=== PATIENT | male | born 2000 | race Caucasian/White ===

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

== ENCOUNTER 2020-01-19 20:07 | Emergency (ER) | payer MEDICAID, OTHER ==
[~2020-01-19] VITALS: Ht 180.3 cm; Wt 70.8 kg
[2020-01-19 21:46] VITALS: BP 102/53
== END 2020-01-19 21:30 | disposition home or self-care (01) ==
LOC: ER 20:08
DX: K62.5 Hemorrhage of anus and rectum (principal); Z79.899 Other long term (current) drug therapy
CPT/HCPCS: 99281

== ENCOUNTER 2020-06-29 13:08 | Emergency (ER) | payer MEDICAID ==
[~2020-06-29] VITALS: Ht 180.3 cm; Wt 77.3 kg
[2020-06-29 13:15] VITALS: BP 126/66
--- NOTE | 2020-06-29 14:54 | NUR ---
process safety engineering technologist in room to apply knee immobilizer to right knee.
== END 2020-06-29 15:05 | disposition home or self-care (01) ==
LOC: ER 13:08
DX: M25.561 Pain in right knee (principal); Z79.899 Other long term (current) drug therapy; X50.1XXA Overexertion from prolonged static or awkward postures, initial encounter; Y93.89 Activity, other specified; Y92.89 Other specified places as the place of occurrence of the external cause; Y99.8 Other external cause status
CPT/HCPCS: 29505; 73564; 99283

== ENCOUNTER 2020-12-26 11:39 | Emergency (ER) | payer MEDICAID ==
[~2020-12-26] VITALS: Ht 180.3 cm; Wt 79.5 kg
[2020-12-26 11:56] VITALS: BP 125/77
[2020-12-26 13:27] LABS: BASOPHILS % (AUTO) 0.4 % (0-1); EOSINOPHILS # (AUTO) 0.1 X10'3 (0-0.9); EOSINOPHILS % (AUTO) 1.9 % (0-6); HEMATOCRIT 45.7 % (42.0-52.0); HEMOGLOBIN 15.5 g/dl (14.0-17.9); LYMPHOCYTES # (AUTO) 1.8 X10'3 (1.1-4.8); LYMPHOCYTES % (AUTO) 26.7 % (21-51); MEAN CORPUSCULAR HEMOGLOBIN 30.1 PG (27.0-31.0); MEAN CORPUSCULAR HGB CONC 33.8 g/dL (33.0-36.5); MEAN CORPUSCULAR VOLUME 89.1 FL (78-98); MEAN PLATELET VOLUME 6.8 FL (7.4-10.4); MONOCYTES # (AUTO) 0.6 X10'3 (0-0.9); MONOCYTES % (AUTO) 8.6 % (2-12); NEUTROPHILS # (AUTO) 4.2 X10'3 (1.8-7.7); NEUTROPHILS % (AUTO) 62.4 % (42-75); PLATELET COUNT 213 X10'3 (140-440); RED BLOOD COUNT 5.13 X10'6 (4.70-6.10); RED CELL DISTRIBUTION WIDTH 13.7 % (11.5-14.5); WHITE BLOOD COUNT 6.7 X10'3 (4.5-11.0)
[2020-12-26 13:42] LABS: ALANINE AMINOTRANSFERASE 18 U/L (12-78); ALBUMIN 4.2 G/DL (3.4-5.0); ALBUMIN/GLOBULIN RATIO 1.5 (1.1-1.5); ALKALINE PHOSPHATASE 54 IU/L (20-180); ANION GAP 2 (8-16); ASPARTATE AMINO TRANSFERASE 10 U/L (10-37); BILIRUBIN,TOTAL 0.3 MG/DL (0.1-1.0); BLOOD UREA NITROGEN 12 MG/DL (7-18); CALCIUM 8.9 MG/DL (8.5-10.1); CHLORIDE 110 MMOL/L (99-107); CREATININE 0.92 MG/DL (0.60-1.10); GLUCOSE 79 MG/DL (70-104); LIPASE 85 U/L (73-393); POTASSIUM 4.2 MMOL/L (3.5-5.1); SODIUM 144 MMOL/L (135-145); TOTAL CARBON DIOXIDE 32.4 MMOL/L (24-32); eGFR > 90 ML/MIN
== END 2020-12-26 15:11 | disposition home or self-care (01) ==
LOC: ER 11:40
DX: S60.221A Contusion of right hand, initial encounter (principal); G89.29 Other chronic pain; K62.89 Other specified diseases of anus and rectum; X58.XXXA Exposure to other specified factors, initial encounter; Y93.89 Activity, other specified; Y92.89 Other specified places as the place of occurrence of the external cause; Y99.8 Other external cause status
CPT/HCPCS: 36415; 73130; 80053; 83690; 85025; 99284

== ENCOUNTER 2021-10-16 11:16 | Emergency (ER) | payer MEDICAID ==
[~2021-10-16] VITALS: Ht 180.3 cm; Wt 75.0 kg
[2021-10-16 11:24] VITALS: BP 101/66
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
== END 2021-10-16 13:14 | disposition home or self-care (01) ==
LOC: EEVIPCON 11:17 → ER 11:17
DX: S83.91XA Sprain of unspecified site of right knee, initial encounter (principal); M67.431 Ganglion, right wrist; R22.41 Localized swelling, mass and lump, right lower limb; Z79.899 Other long term (current) drug therapy; Y04.0XXA Assault by unarmed brawl or fight, initial encounter; Y93.02 Activity, running; Y92.89 Other specified places as the place of occurrence of the external cause; Y99.8 Other external cause status
CPT/HCPCS: 29505; 73110; 73130; 73564; 99284; A6449

== ENCOUNTER 2022-03-04 02:06 | Emergency (ER) | payer MEDICAID ==
[~2022-03-04] VITALS: Ht 180.3 cm; Wt 75.0 kg
[2022-03-04 02:53] VITALS: BP 126/99
[2022-03-04 03:21] LABS: BASOPHILS # (AUTO) 0.1 X10'3 (0-0.2); BASOPHILS % (AUTO) 0.5 % (0-1); EOSINOPHILS % (AUTO) 0.2 % (0-6); HEMATOCRIT 50.5 % (42.0-52.0); LYMPHOCYTES # (AUTO) 1.1 X10'3 (1.1-4.8); LYMPHOCYTES % (AUTO) 9.2 % (21-51); MEAN CORPUSCULAR HEMOGLOBIN 30.2 PG (27.0-31.0); MEAN CORPUSCULAR HGB CONC 33.7 g/dL (33.0-36.5); MEAN CORPUSCULAR VOLUME 89.8 FL (78-98); MEAN PLATELET VOLUME 6.8 FL (7.4-10.4); MONOCYTES # (AUTO) 0.6 X10'3 (0-0.9); NEUTROPHILS # (AUTO) 10.4 X10'3 (1.8-7.7); NEUTROPHILS % (AUTO) 85.1 % (42-75); PLATELET COUNT 242 X10'3 (140-440); RED BLOOD COUNT 5.62 X10'6 (4.70-6.10); RED CELL DISTRIBUTION WIDTH 13.5 % (11.5-14.5); WHITE BLOOD COUNT 12.2 X10'3 (4.5-11.0)
[2022-03-04 03:22] LABS: ALANINE AMINOTRANSFERASE 20 U/L (12-78); ALBUMIN 4.8 G/DL (3.4-5.0); ALBUMIN/GLOBULIN RATIO 1.5 (1.1-1.5); ALKALINE PHOSPHATASE 48 IU/L (46-116); ANION GAP 10 (8-16); ASPARTATE AMINO TRANSFERASE 26 U/L (10-37); BILIRUBIN,TOTAL 0.5 MG/DL (0.1-1.0); BLOOD UREA NITROGEN 11 MG/DL (7-18); BUN/CREATININE RATIO 11.5 (5.4-32.0); CHLORIDE 102 MMOL/L (99-107); CREATININE 0.96 MG/DL (0.60-1.10); ETHANOL 0.137 GM/DL (0.0-0.010); GLUCOSE 104 MG/DL (70-104); POTASSIUM 3.3 MMOL/L (3.5-5.1); SODIUM 140 MMOL/L (135-145); TOTAL CARBON DIOXIDE 28.2 MMOL/L (24-32); TOTAL PROTEIN 7.9 G/DL (6.4-8.2); eGFR > 90 ML/MIN
--- NOTE | 2022-03-04 03:49 | NUR ---
PT UNABLE TO REST. PER PT HE HAS NOT SLEPT IN 24 HRS. PT IS CONSTANTLY WANTING TO MAKE PHONE CALLS AND QUESTIONING WHEN HE WILL BE ABLE TO LEAVE.
[2022-03-04] MEDS ORDERED: OLANZapine 5mg rapidly disint. tablet PO ONE (03:50)
[2022-03-04 04:03] LABS: URINE AMPHETAMINE SCREEN NEGATIVE (Neg); URINE BARBITUATE SCREEN NEGATIVE (Neg); URINE BENZODIAZEPINES SCREEN NEGATIVE (Neg); URINE CANNABINOID SCREEN POSITIVE (Neg); URINE COCAINE SCREEN POSITIVE (Neg); URINE METHADONE SCREEN NEGATIVE (Neg); URINE OPIATE SCREEN NEGATIVE (Neg); URINE PHENCYCLIDINE SCREEN NEGATIVE (Neg)
[2022-03-04 04:12] LABS: CLARITY,URINE CLEAR (Clear); COLOR,URINE STRAW (Yellow); GLUCOSE, URINE NEGATIVE (Neg); KETONES,URINE NEGATIVE (Neg); LEUKOCYTE ESTERASE ,URINE NEGATIVE (Neg); NITRITES, URINE NEGATIVE (Neg); OCCULT BLOOD,URINE SMALL (Neg); PH,URINE 6.5 (4.8-8.0); PROTEIN,URINE NEGATIVE (Neg); UROBILINOGEN,URINE 0.2 E.U/dL (0.2-1.0)
[2022-03-04 04:19] LABS: UA COLLECTION TYPE CLN CATCH MIDSTREAM
[2022-03-04 04:22] LABS: BACTERIA,URINE NONE SEEN /HPF (Neg); CAL OXALATE CRYSTALS FEW /HPF (NEGATIVE); MUCUS STRANDS NONE SEEN /LPF (Neg); RBC,URINE 0-2 /HPF (0-2); SQUAMOUS EPITHELIAL CELL,UR NONE SEEN /LPF (FEW); WBC,URINE NONE SEEN /HPF (0-4)
--- NOTE | 2022-03-04 04:24 | NUR ---
PT CONTINUES TO BE RESTLESS AFTER MEDICATION GIVEN. SEVERAL FAMILY MEMBERS HAVE CALLED TO SPEAK WITH PT. FAMILY NOTIFIED THAT THEY MAY CALL BACK IN THE MORNING AFTER THE PT GETS SOME REST.
[2022-03-04] MEDS ORDERED: cloNIDine 0.1 mg tablet PO STA ×2 (04:42→04:45)
[2022-03-04] MEDS ORDERED: LORazepam 1 MG tablet PO ONE (04:45)
--- NOTE | 2022-03-04 05:01 | NUR ---
PATIENT'S PACKET WAS SENT TO [facility].
--- NOTE | 2022-03-04 05:20 | NUR ---
Dr Crowell states it is ok to hold the meds but keep them on Mar in case it is needed.
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
--- NOTE | 2022-03-04 06:57 | NUR ---
pt brought over and placed in room 22
--- NOTE | 2022-03-04 07:56 | NUR ---
tech resent pt packet to [facility]
--- NOTE | 2022-03-04 13:17 | NUR ---
TECH GAVE PT BELONGINGS BACK TO HIM, NO VALUABLES WERE LOCKED UP.
== END 2022-03-04 13:31 | disposition home or self-care (01) ==
LOC: ER 02:06
DX: R45.851 Suicidal ideations (principal); Z20.822 Contact with and (suspected) exposure to COVID-19; F32.A Depression, unspecified
CPT/HCPCS: 36415; 80053; 80305; 80320; 81001; 85025; 87811; 99285

== ENCOUNTER 2023-04-10 11:39 | Emergency (ER) | payer MEDICAID ==
[~2023-04-10] VITALS: Ht 180.3 cm; Wt 75.0 kg
[2023-04-10 11:52] VITALS: BP 114/69
[2023-04-10 11:59] LABS: BASOPHILS % (AUTO) 0.3 % (0-1); EOSINOPHILS # (AUTO) 0.1 X10'3 (0-0.9); EOSINOPHILS % (AUTO) 1.2 % (0-6); HEMATOCRIT 50.1 % (42.0-52.0); HEMOGLOBIN 17.3 g/dl (14.0-17.9); LYMPHOCYTES # (AUTO) 3.4 X10'3 (1.1-4.8); LYMPHOCYTES % (AUTO) 39.8 % (21-51); MEAN CORPUSCULAR HEMOGLOBIN 29.6 PG (27.0-31.0); MEAN CORPUSCULAR HGB CONC 34.6 g/dL (33.0-36.5); MEAN CORPUSCULAR VOLUME 85.7 FL (78-98); MEAN PLATELET VOLUME 6.6 FL (7.4-10.4); MONOCYTES # (AUTO) 0.7 X10'3 (0-0.9); NEUTROPHILS # (AUTO) 4.3 X10'3 (1.8-7.7); NEUTROPHILS % (AUTO) 50.7 % (42-75); PLATELET COUNT 210 X10'3 (140-440); RED BLOOD COUNT 5.84 X10'6 (4.70-6.10); RED CELL DISTRIBUTION WIDTH 13.5 % (11.5-14.5); WHITE BLOOD COUNT 8.4 X10'3 (4.5-11.0)
[2023-04-10 12:20] LABS: ALANINE AMINOTRANSFERASE 19 U/L (12-78); ALBUMIN 4.9 G/DL (3.4-5.0); ALBUMIN/GLOBULIN RATIO 1.5 (1.1-1.5); ALKALINE PHOSPHATASE 46 IU/L (46-116); ANION GAP 7 (8-16); ASPARTATE AMINO TRANSFERASE 10 U/L (10-37); BILIRUBIN,TOTAL 1.3 MG/DL (0.1-1.0); BLOOD UREA NITROGEN 16 MG/DL (7-18); BUN/CREATININE RATIO 17.4 (10.0-20.0); CALCIUM 9.4 MG/DL (8.5-10.1); CHLORIDE 102 MMOL/L (99-107); CREATININE 0.92 MG/DL (0.60-1.10); GLUCOSE 90 MG/DL (70-104); POTASSIUM 4.3 MMOL/L (3.5-5.1); SODIUM 139 MMOL/L (135-145); TOTAL CARBON DIOXIDE 29.7 MMOL/L (24-32); TOTAL PROTEIN 8.1 G/DL (6.4-8.2); eCRCL 134 ML/MIN; eGFR > 90 ML/MIN
[2023-04-10 12:26] LABS: PRO BRAIN NATRIURETIC PEPTIDE < 30 PG/ML (0-125)
[2023-04-10 14:24] VITALS: TEMP 98.2
[2023-04-10] MEDS ORDERED: ipratropium/albuterol 3ml nebule NEB STA (14:28)
[2023-04-10 15:02] VITALS: PULSE 66; PULSE 79; RESP 14; RESP 26; O2SAT 100
== END 2023-04-10 15:30 | disposition home or self-care (01) ==
LOC: ER 11:40
DX: R42 Dizziness and giddiness (principal); R55 Syncope and collapse; Z79.899 Other long term (current) drug therapy
CPT/HCPCS: 36415; 80053; 83880; 84484; 85025; 93005; 94760; 99284